=== PATIENT | male | born 1980 | race Caucasian/White ===

== ENCOUNTER 2018-12-28 15:09 | Emergency (ER) | payer OTHER ==
[~2018-12-28] VITALS: Ht 177.8 cm; Wt 65.8 kg
[2018-12-28 15:41] LABS: URINE BILIRUBIN NEGATIVE (Negative); URINE BLOOD NEGATIVE (Negative); URINE CLARITY CLEAR; URINE COLOR YELLOW; URINE GLUCOSE-RANDOM NEGATIVE (Negative); URINE KETONES NEGATIVE (Negative); URINE LEUKOCYTES-REFLEX NEGATIVE (Negative); URINE NITRITE-REFLEX NEGATIVE (Negative); URINE PROTEIN NEGATIVE (Negative); URINE SPECIFIC GRAVITY 1.025 (1.005-1.030); URINE UROBILINOGEN 0.2 E.U./dl (0.2-1.0)
[2018-12-28 15:50] LABS: ABSOLUTE LYMPHOCYTES 1.9 thou/uL (0.8-5.3); ABSOLUTE MONOCYTES 0.4 thou/uL (0.0-1.2); ABSOLUTE NEUTROPHILS 4.7 thou/uL (1.6-8.1); BASOPHILS 0.7 %; EOSINOPHILS 0.3 %; HEMATOCRIT 46.7 % (42.0-52.0); HEMOGLOBIN 15.3 gm/dL (14.0-18.0); LYMPHOCYTES 27.1 %; MCH 30.2 pg (26.0-34.0); MCHC 32.6 g/dL (28.0-37.0); MCV 92.4 fL (80.0-100.0); MONOCYTES 6.1 %; MPV 8.2 fl. (7.2-11.1); NUCLEATED RBCS 0 /100WBC; PLATELET COUNT* 218 thou/uL (150-400); POLYS 65.8 %; RBC 5.06 mil/uL (4.50-6.00); RDW-CV 13.7 % (10.5-14.5); WBC 7.1 thou/uL (4.0-11.0)
[2018-12-28 15:53] LABS: CALCIUM 9.2 mg/dL (8.5-10.1); POTASSIUM 3.8 mmol/L (3.5-5.1)
[2018-12-28 15:58] LABS: ALBUMIN 4.6 g/dL (3.4-5.0); TOTAL BILIRUBIN 0.4 mg/dL (<0.1-1.0); TOTAL PROTEIN 7.8 g/dL (6.4-8.2)
[2018-12-28 16:15] LABS: PLATELET ESTIMATE ADEQUATE
[2018-12-28] MEDS ORDERED: NAPROSYN500 MG PO (17:02)
[2018-12-28] MEDS ORDERED: PROAIR HFA8.5 GM INH (17:02)
[2018-12-28] MEDS ORDERED: MEDROLDOSEPACK PO (17:08)
[2018-12-28] MEDS ORDERED: ZPAK PO (17:08)
[2018-12-28 17:11] VITALS: BP 128/93
== END 2018-12-28 17:09 | disposition home or self-care (01) ==
LOC: M.ERS 15:09
PROVIDERS: Physician Assistant
DX: J20.9 Acute bronchitis, unspecified (principal); R10.84 Generalized abdominal pain; F17.210 Nicotine dependence, cigarettes, uncomplicated

== ENCOUNTER 2019-01-11 09:32 | Emergency (ER) | payer OTHER ==
[~2019-01-11] VITALS: Ht 177.8 cm; Wt 63.5 kg
[~2019-01-11 09:32] MED LIST: MEDROLDOSEPACK PO; NAPROSYN500 MG PO; PROAIR HFA8.5 GM INH; ZPAK PO
[2019-01-11] MEDS ORDERED: ANUSOL-HC25 MG RECTAL (10:21)
[2019-01-11 10:31] VITALS: BP 122/87
== END 2019-01-11 10:32 | disposition home or self-care (01) ==
LOC: M.ERS 09:32
DX: K64.9 Unspecified hemorrhoids (principal); F17.210 Nicotine dependence, cigarettes, uncomplicated